=== PATIENT | female | born 1980 | race Caucasian/White ===

== ENCOUNTER 2016-10-28 08:48 | Outpatient (CLI) | payer OTHER ==
--- NOTE | 2016-10-28 10:03 | DIAGNOSTIC IMAGING REPORT ---
PROCEDURE: US COMPLETE PELVIC W/TRANSVAG INDICATION: PELVIC PRESSURE;PAIN, initial encounter TECHNIQUE: Transabdominal and endovaginal acosta scale and color Doppler sonographic images of the female pelvis were obtained. COMPARISON: None. FINDINGS: TRANSABDOMINAL SCANS: Anteverted uterus. 1.3 cm left renal upper pole cyst. Normal right kidney. TRANSVAGINAL SCANS: The uterus measures 8.8 x 3.9 x 5.3 cm with normal myometrium. Normal endometrial measures 4.5 mm. Right ovary measures 2.5 x 1.7 x 2.1 cm and left ovary 2.3 x 1.1 x 2.2 cm. Small peripheral follicles are present bilaterally. Normal vascular flow to the ovaries. No adnexal mass or free fluid in the cul-de-sac IMPRESSION: 1. Normal pelvic ultrasound 2. 1.3 cm left renal cyst
== END 2016-10-28 23:00 ==
LOC: US SRH 08:48
DX: R10.2 Pelvic and perineal pain (principal)